=== PATIENT | female | born 2000 ===

== ENCOUNTER 2020-02-20 | Inpatient (IN) | payer BC, OTHER | END 2020-02-24 11:57 | disposition home or self-care (01) | DRG 788 | PROVIDERS: ADMIT Obstetrics & Gynecology | PROC: 10D00Z1 Extraction of Products of Conception, Low, Open Approach (ICD-10-PCS; principal; 2020-02-23) | DX: O30.033 Twin pregnancy, monochorionic/diamniotic, third trimester (principal); O14.14 Severe pre-eclampsia complicating childbirth; Z3A.36 36 weeks gestation of pregnancy; Z37.2 Twins, both liveborn ==